=== PATIENT | male | born 1945 | race Caucasian/White ===

== ENCOUNTER → 2017-09-05 | Outpatient (CLI) | payer MEDICARE, OTHER ==
--- NOTE | 2017-09-05 09:49 | FL ---
EXAMINATION TYPE: FL barium swallow DATE OF EXAM: 09/05/2017 Comparison: CT abdomen and pelvis December 19, 2015. LIMITED UGI-ESOPHAGRAM: CLINICAL HISTORY: History of Handy fundoplication surgery 2 years ago with two-week episode of dysp hagia and epigastric pain TECHNIQUE: Limited esophagram is performed utilizing 20 oz of EZ-paque. A total of 41 seconds of flu oroscopic time was utilized during procedure. 16 spot images were saved during procedure. FINDINGS: The patient swallowed contrast without difficulty or delay. Some underlying esophageal dys motility is present with abnormal secondary and tertiary contractions. There is good flow of contrast along the diaphragmatic hiatus into the stomach, there is no evidence of contrast extravasation to s uggest leak. No recurrent hiatal hernia is seen. Patient remains asymptomatic. IMPRESSION: No evidence of leak, recurrent hiatal hernia, or significant obstruction.
== END | disposition home or self-care (01) ==
LOC: RADFLMAIN 08:21
PROVIDERS: ATTEND Surgery
DX: K21.9 Gastro-esophageal reflux disease without esophagitis (principal)
CPT/HCPCS: 74220

== ENCOUNTER 2017-09-07 09:28 | Day surgery (SDC) | payer BC, MEDICARE, OTHER ==
[2017-09-06 14:04] VITALS: BMI 22.1
[~2017-09-07 09:28] MED LIST: LACTATED RINGERS 1,000 ML IV SCH
[2017-09-07 10:56] VITALS: TEMP 97.9
[2017-09-07] MEDS ORDERED: PROPOFOL 10 MG/ML 20 ML VIAL IV ONE (12:00)
[2017-09-07] MEDS ORDERED: LIDOCAINE 1% INJ 10MG/ML (20 ML MDV) ONE (12:00)
--- NOTE | 2017-09-07 12:03 | P.GSHP ---
History of Present Illness H&P Date: 09/07/17 Chief Complaint: GERD This a 72-year-old male who presents today for EGD. He's had some issues with GERD. Past Medical History Past Medical History: GERD/Reflux, Osteoarthritis (OA), Pneumonia Additional Past Medical History / Comment(s): Galdamez's esophagus, polio as child-wears leg braces, hx hiatal hernia, migraines, hx IBS History of Any Multi-Drug Resistant Organisms: None Reported Past Surgical History: Hernia Repair, Tonsillectomy Additional Past Surgical History / Comment(s): TORSTEN FUNDLOPLICATION, rt inguinal hernia x 3 Past Anesthesia/Blood Transfusion Reactions: Motion Sickness Smoking Status: Former smoker - Past Family History Mother Family Medical History: Cancer Father Family Medical History: Myocardial Infarction ([place]) Medications and Allergies Home Medications Medication Instructions Recorded Confirmed Type No Known Home Medications [No 09/06/17 09/07/17 History Known Home Medications] Allergies Allergy/AdvReac Type Severity Reaction Status Date / Time aspirin Allergy Anaphylaxis Verified 09/07/17 10:43 Surgical - Exam Vital Signs Temp Pulse Resp BP Pulse Ox 97.9 F 66 16 148/79 97 09/07/17 10:51 09/07/17 10:51 09/07/17 10:51 09/07/17 10:51 09/07/17 10:51 - General well developed, no distress - Eyes PERRL - ENT normal pinna - Neck no masses - Respiratory normal expansion - Cardiovascular Rhythm: regular - Abdomen Abdomen: soft, non tender Assessment and Plan Assessment: GERD. We'll perform EGD.
--- NOTE | 2017-09-07 12:14 | P.OP ---
Date of Procedure: 09/07/17 Preoperative Diagnosis: GERD Postoperative Diagnosis: Severe antral gastritis Duodenitis No evidence of recurrent hiatal hernia Procedure(s) Performed: EGD Anesthesia: MAC Surgeon: Huan Frazier Pathology: other (Antrum, duodenum) Condition: stable Disposition: PACU Description of Procedure: The patient's placed on the endoscopy table in the lateral position. He received IV sedation. The gastroscope placed oropharynx and passed in the esophagus into the stomach. The scope was then placed through the pylorus. The first and second portion of the duodenum appeared inflamed. A biopsy duodenum was performed. Scope was brought back and the antrum and there was significant gastritis seen. Several biopsies performed. The scope was unretroflexed and remainder stomach appeared normal. There is no evidence of a hiatal hernia. The GE junction was at 40 cm. The distal esophagus appeared normal. The proximal esophagus appeared normal. Scope was withdrawn for patient.
[2017-09-07 12:44] VITALS: BP 144/78; PULSE 55; RESP 18
== END 2017-09-07 12:54 | disposition home or self-care (01) ==
LOC: ORWHC2ENDO 09:28
PROVIDERS: ATTEND Surgery
DX: K29.80 Duodenitis without bleeding (principal); K31.89 Other diseases of stomach and duodenum; K29.50 Unspecified chronic gastritis without bleeding; M19.90 Unspecified osteoarthritis, unspecified site; K58.9 Irritable bowel syndrome, unspecified; Z86.12 Personal history of poliomyelitis; Z87.891 Personal history of nicotine dependence; Z88.6 Allergy status to analgesic agent
CPT/HCPCS: 88305; 43239; J2001; J2704

== ENCOUNTER → 2017-10-27 | Outpatient (CLI) | payer MEDICARE, OTHER ==
--- NOTE | 2017-10-27 13:10 | MR ---
EXAMINATION TYPE: MR brain wo con DATE OF EXAM: 10/27/2017 7:02 AM COMPARISON: NONE HISTORY: Headache, Dizziness FINDINGS: The ventricles, basal cisterns and sulci overlying the cerebral convexities are mildly enlarged. There is evidence of mild periventricular white matter ischemic demyelination. Remote deep white matter insults are also noted. No acute edema is seen on diffusion weighted imaging. There is no evidence for midline shift or mass effect. Acute intracranial hemorrhage or extra-axial collection is not evident. The paranasal sinuses and mastoid air cells are well-aerated. IMPRESSION: Age-related atrophic and chronic small vessel ischemic change. No acute intracranial process at this time.
== END | disposition home or self-care (01) ==
LOC: RADMRIMAIN 06:26
PROVIDERS: ATTEND Psychiatry & Neurology Neurology
DX: G31.1 Senile degeneration of brain, not elsewhere classified (principal); I67.82 Cerebral ischemia
CPT/HCPCS: 70551

== ENCOUNTER → 2019-06-22 | Outpatient (CLI) | payer OTHER ==
--- NOTE | 2019-06-22 11:18 | CT ---
EXAMINATION TYPE: CT abdomen pelvis wo con DATE OF EXAM: 06/22/2019 COMPARISON: 12/19/2015 HISTORY: Generalized abdominal pain CT DLP: 463.5 mGycm Examination of the solid and hollow viscera is limited given the lack of contrast. FINDINGS: LUNG BASES: No evidence for nodule. No evidence for infiltrate. There is a small recurrent paraesopha geal hiatal hernia noted. LIVER/GB: The gallbladder is unremarkable. No space-occupying hepatic lesion. PANCREAS: No pancreatic mass identified. No inflammatory process seen. SPLEEN: No evidence for splenomegaly. No intrasplenic lesions seen. ADRENALS: No adrenal nodules identified. No evidence for thickening. KIDNEYS: No evidence for renal mass. No nephrolithiasis. No hydronephrosis. BOWEL: Appendix has a normal appearance. No evidence of bowel obstruction. No inflammatory process. Lymph nodes: No evidence for adenopathy greater than 1 cm. Abdominal aorta: Atheromatous changes seen. No evidence for aneurysm. Genital organs: No significant abnormality. Other: No significant abnormality. IMPRESSION: 1. Small recurrent paraesophageal hiatal hernia
== END | disposition home or self-care (01) ==
LOC: RADCTMAIN 09:01
DX: R10.10 Upper abdominal pain, unspecified (principal); K44.9 Diaphragmatic hernia without obstruction or gangrene
CPT/HCPCS: 74176; Q9967